=== PATIENT | male | born 1960 | race Caucasian/White ===

== ENCOUNTER 2022-07-31 10:19 | Inpatient (IN) ==
[2022-07-31 12:36] LABS: Hematocrit 39 % (42-52); Hemoglobin 13.8 g/dL (14.0-18.0); Mean Corpuscular HGB Conc 35 g/dL (31-36); Mean Corpuscular Hemoglobin 34 pg (27-31); Mean Corpuscular Volume 97 fL (80-94); Red Blood Count 4.09 10^6 /uL (4.18-5.48); Red Cell Distribution Width 15 % (10-15); White Blood Count 10.3 10^3/uL (3.5-10.8)
[2022-07-31 12:51] LABS: Urine Color Yellow
[2022-07-31 12:52] LABS: Urine Appearance Slightly Cloudy; Urine Glucose 3+ (>=1000 mg/dL) (Negative); Urine Ketones 1+ (15mg/dL) (Negative); Urine Nitrite Positive (Negative); Urine Protein Negative (Negative); Urine Specific Gravity 1.015 (1.005-1.030)
[2022-07-31 12:56] LABS: High Sens Troponin Baseline 11 pg/mL (<20)
[2022-07-31 12:58] LABS: ABS Basophils 0.1 10^3/ul (0-0.2); ABS Eosinophils 0.1 10^3/ul (0-0.6); ABS Lymphocytes 1.3 10^3/ul (1.0-4.8); ABS Monocytes 1.2 10^3/ul (0-0.8); ABS Neutrophils 7.6 10^3/ul (1.5-7.7); Lymphocyte % 12.2 %; Mean Platelet Volume 7.6 fL (7.4-10.4); Nucleated Red Blood Cells % 0.1; Platelet Count 68 10^3/uL (150-450)
[2022-07-31 13:04] LABS: Urine Bacteria Absent (Absent); Urine Red Blood Cell 2+(6-10/hpf) (Absent); Urine Squamous Epithelial Cell Present (Absent); Urine White Blood Cell 2+(11-20/hpf) (Absent)
[2022-07-31 13:08] LABS: Urine Benzodiazepine Screen None Detected (None Detect); Urine Cannabinoids Screen Presumptive Positive (None Detect); Urine Opiates Screen None Detected (None Detect)
[2022-07-31 13:27] LABS: ALT 23 U/L (7-52); AST 55 U/L (13-39); Acetaminophen < 15 mcg/mL; Albumin 2.4 g/dL (3.2-5.2); Albumin/Globulin Ratio 0.6 (1-3); Alcohol, S 48 mg/dL (<13); Alkaline Phosphatase 252 U/L (35-149); Anion Gap 7 mmol/L (2-11); Blood Urea Nitrogen 5 mg/dL (6-24); CO2 Carbon Dioxide 27 mmol/L (22-32); Calcium 8.6 mg/dL (8.6-10.3); Chloride 98 mmol/L (101-111); Globulin 3.9 g/dL (2-4); Glucose 223 mg/dL (70-100); Potassium 3.7 mmol/L (3.5-5.0); Salicylate < 2.50 mg/dL (<30); Sodium 132 mmol/L (135-145); Total Protein 6.3 g/dL (6.4-8.9); eGFR CKD-EPI 116.1 (>60)
[2022-07-31] MEDS ORDERED: Iodixanol (CONTRAST) 320 MG/ML 100 ML SDV IV ONE (13:54)
[2022-07-31 14:01] LABS: High Sensitivity Troponin 1 Hr 10 pg/mL (<20)
[2022-07-31 15:45] LABS: Indirect Bilirubin 5.4 mg/dL (0.3-1.0)
[2022-07-31] MEDS ORDERED: Thiamine 100 MG/ML 2 ml VIAL (200 mg) IM ONE (16:41)
[2022-07-31] MEDS ORDERED: HYDROmorphone 0.5 MG/0.5 ML SYRINGE IV ONE (16:47)
[2022-07-31 17:07] LABS: INR 1.63 (0.88-1.18)
[2022-07-31] MEDS ORDERED: Dextrose 50% Syringe 50 ml 25 GM/50 ML SYRINGE IV PUSH PRN (17:07)
[2022-07-31 17:08] LABS: Protime (Maddrey) 17.8 seconds (9.5-12.8)
[2022-07-31 17:37] LABS: Magnesium 1.7 mg/dL (1.9-2.7)
[2022-07-31] MEDS ORDERED: Magnesium Sulf 4 GM/100 ML IV 4,000 MG/100 ML BAG IVPB ONE (17:54)
[2022-07-31] MEDS: Lactulose 30 ml UDC PO SCH ×2 (18:25→23:13)
[2022-07-31] MEDS: Multivitamins/Minerals TAB PO SCH (18:25)
[2022-07-31] MEDS: cefTRIAXone 1 gm/50 mL D5W 1 GM/50 ML BAG IV SCH (20:26)
[2022-07-31] MEDS: Enoxaparin 40 MG/0.4 ML SYR SUBCUT SCH (20:29)
[2022-07-31] MEDS: KCL 10 MEQ/50 ML IVPREMIX 10 MEQ/50 ML BAG IV SCH (23:33)
[2022-08-01] MEDS: KCL 10 MEQ/50 ML IVPREMIX 10 MEQ/50 ML BAG IV SCH ×2 (00:53→03:45)
[2022-08-01 07:29] LABS: ABS Eosinophils 0.1 10^3/ul (0-0.6); ABS Lymphocytes 1.3 10^3/ul (1.0-4.8); ABS Neutrophils 5.6 10^3/ul (1.5-7.7); Eosinophil % 1.4 %; Hematocrit 40 % (42-52); Hemoglobin 14.1 g/dL (14.0-18.0); Lymphocyte % 16.3 %; Mean Corpuscular HGB Conc 36 g/dL (31-36); Mean Corpuscular Hemoglobin 35 pg (27-31); Mean Corpuscular Volume 99 fL (80-94); Mean Platelet Volume 7.7 fL (7.4-10.4); Nucleated Red Blood Cells % 0.3; Platelet Count 61 10^3/uL (150-450); Red Blood Count 4.03 10^6 /uL (4.18-5.48); Red Cell Distribution Width 16 % (10-15); White Blood Count 8.1 10^3/uL (3.5-10.8)
[2022-08-01 07:33] LABS: Albumin 2.3 g/dL (3.2-5.2); Albumin/Globulin Ratio 0.7 (1-3); Calcium 8.3 mg/dL (8.6-10.3); Globulin 3.4 g/dL (2-4); Potassium 3.7 mmol/L (3.5-5.0); Total Protein 5.7 g/dL (6.4-8.9); eGFR CKD-EPI 117.5 (>60)
[2022-08-01 07:46] LABS: Magnesium 2.1 mg/dL (1.9-2.7); Total Bilirubin 15.1 mg/dL (0.2-1.0)
[2022-08-01 07:53] LABS: Ferritin 316.8 ng/mL (24-336)
[2022-08-01] MEDS: Multivitamins/Minerals TAB PO SCH (08:12)
[2022-08-01] MEDS: Lactulose 30 ml UDC PO SCH ×3 (08:13→21:39)
[2022-08-01 11:11] LABS: Hepatitis A Ab IgM Negative (Negative)
[2022-08-01 11:12] LABS: Hepatitis B Core IgM Nonreactive (Nonreactive)
[2022-08-01 11:24] LABS: Hepatitis C Antibody Negative (Negative)
[2022-08-01 11:26] LABS: Hepatitis B Surface Ab Not Immune (Immune)
[2022-08-01] MEDS: Enoxaparin 40 MG/0.4 ML SYR SUBCUT SCH (17:44)
[2022-08-01] MEDS: cefTRIAXone 1 gm/50 mL D5W 1 GM/50 ML BAG IV SCH (17:44)
[2022-08-01] MEDS ORDERED: HYDROmorphone 0.5 MG/0.5 ML SYRINGE IV SLOW PU ONE (22:58)
[2022-08-02 07:33] LABS: INR 1.94 (0.88-1.18)
[2022-08-02 07:33] LABS: ABS Eosinophils 0.1 10^3/ul (0-0.6); ABS Lymphocytes 1.1 10^3/ul (1.0-4.8); ABS Monocytes 0.6 10^3/ul (0-0.8); ABS Neutrophils 3.7 10^3/ul (1.5-7.7); Eosinophil % 1.8 %; Hematocrit 39 % (42-52); Hemoglobin 13.8 g/dL (14.0-18.0); Lymphocyte % 19.1 %; Mean Corpuscular HGB Conc 35 g/dL (31-36); Mean Corpuscular Hemoglobin 35 pg (27-31); Mean Corpuscular Volume 100 fL (80-94); Mean Platelet Volume 7.8 fL (7.4-10.4); Nucleated Red Blood Cells % 0.1; Platelet Count 65 10^3/uL (150-450); Red Blood Count 3.95 10^6 /uL (4.18-5.48); Red Cell Distribution Width 16 % (10-15); White Blood Count 5.5 10^3/uL (3.5-10.8)
[2022-08-02 07:45] LABS: ALT 24 U/L (7-52); Albumin 2.4 g/dL (3.2-5.2); Albumin/Globulin Ratio 0.7 (1-3); Alkaline Phosphatase 236 U/L (35-149); Blood Urea Nitrogen 9 mg/dL (6-24); CO2 Carbon Dioxide 27 mmol/L (22-32); Calcium 8.3 mg/dL (8.6-10.3); Chloride 99 mmol/L (101-111); Globulin 3.4 g/dL (2-4); Glucose 219 mg/dL (70-100); Sodium 134 mmol/L (135-145); Total Protein 5.8 g/dL (6.4-8.9); eGFR CKD-EPI 109.4 (>60)
[2022-08-02] MEDS: Lactulose 30 ml UDC PO SCH ×3 (07:45→19:49)
[2022-08-02] MEDS: Multivitamins/Minerals TAB PO SCH (07:47)
[2022-08-02 08:05] LABS: Anion Gap 8 mmol/L (2-11)
[2022-08-02 08:07] LABS: Protime (Maddrey) 21.2 seconds (9.5-12.8)
[2022-08-02 08:08] LABS: Total Bilirubin 15.2 mg/dL (0.2-1.0)
[2022-08-02 09:14] LABS: Folate 10.08 ng/mL (5.90-24.80)
[2022-08-02 09:15] LABS: Vitamin B12 > 1450 pg/mL (180-914)
[2022-08-02 09:49] LABS: Potassium 3.7 mmol/L (3.5-5.0)
[2022-08-02] MEDS ORDERED: Senna TAB 8.6 mg TAB PO PRN (10:32)
[2022-08-02 12:37] LABS: Glucose Confirmatory 439 mg/dL (70-100)
[2022-08-02] MEDS ORDERED: Dextrose 50% Syringe 50 ml 25 GM/50 ML SYRINGE IV PUSH PRN (13:01)
[2022-08-02] MEDS: cefTRIAXone 1 gm/50 mL D5W 1 GM/50 ML BAG IV SCH (17:48)
[2022-08-02] MEDS: Enoxaparin 40 MG/0.4 ML SYR SUBCUT SCH (17:49)
[2022-08-03] MEDS: Lactulose 30 ml UDC PO SCH ×2 (08:55→13:04)
[2022-08-03] MEDS ORDERED: Influenza vaccine *QUAD* *2022-23* 0.5 ML SYRINGE IM ONE (09:00)
[2022-08-03 09:18] LABS: ABS Eosinophils 0.2 10^3/ul (0-0.6); ABS Lymphocytes 1.7 10^3/ul (1.0-4.8); ABS Monocytes 0.9 10^3/ul (0-0.8); ABS Neutrophils 4.3 10^3/ul (1.5-7.7); Eosinophil % 2.4 %; Hematocrit 41 % (42-52); Hemoglobin 14.6 g/dL (14.0-18.0); Lymphocyte % 23.7 %; Mean Corpuscular HGB Conc 36 g/dL (31-36); Mean Corpuscular Hemoglobin 35 pg (27-31); Mean Corpuscular Volume 98 fL (80-94); Mean Platelet Volume 7.2 fL (7.4-10.4); Nucleated Red Blood Cells % 0.2; Platelet Count 90 10^3/uL (150-450); Red Blood Count 4.21 10^6 /uL (4.18-5.48); Red Cell Distribution Width 16 % (10-15)
[2022-08-03 09:49] LABS: Albumin 2.6 g/dL (3.2-5.2); Albumin/Globulin Ratio 0.7 (1-3); Calcium 8.7 mg/dL (8.6-10.3); Globulin 3.6 g/dL (2-4); Potassium 3.4 mmol/L (3.5-5.0); Total Protein 6.2 g/dL (6.4-8.9); eGFR CKD-EPI 114.1 (>60)
[2022-08-03 09:54] LABS: Total Bilirubin 14.4 mg/dL (0.2-1.0)
[2022-08-03] MEDS ORDERED: Potassium Chlor 20 meq TAB.ER PO ONE (10:04)
[2022-08-03 10:24] LABS: Magnesium 1.5 mg/dL (1.9-2.7)
[2022-08-03 11:26] VITALS: BP 138/78
[2022-08-03] MEDS ORDERED: Multivitamins/Minerals TAB PO SCH (11:30)
[2022-08-06 16:50] LABS: Hepatitis B DNA Quantitative Undetected IU/mL (Undetected)
== END 2022-08-03 13:25 | disposition home or self-care (01) | DRG 280 ==
LOC: EDHOLD 10:19 → ED 10:19 → SUATTDRO 15:58 → MED 21:21
PROVIDERS: ADMIT Internal Medicine; ATTEND Internal Medicine

== ENCOUNTER 2023-02-22 07:18 | Inpatient (IN) ==
[2023-02-22] MEDS ORDERED: Lactated Ringers 1000 ml BAG 1,000 ML IV ONE ×3 (07:27→14:37)
[2023-02-22 07:48] LABS: Venous Bicarbonate HCO3 26.9 mmol/L (24-28)
[2023-02-22 08:03] LABS: INR 1.52 (0.88-1.18)
[2023-02-22 08:04] LABS: ALT 45 U/L (7-52); Albumin 2.9 g/dL (3.2-5.2); Albumin/Globulin Ratio 0.9 (1-3); Alkaline Phosphatase 132 U/L (35-149); Blood Urea Nitrogen 9 mg/dL (6-24); C Reactive Protein 4.88 mg/L (<8.01); CO2 Carbon Dioxide 27 mmol/L (22-32); Calcium 9.6 mg/dL (8.6-10.3); Chloride 97 mmol/L (101-111); Creatinine, Serum 1.01 mg/dL (0.67-1.17); Globulin 3.4 g/dL (2-4); Glucose 487 mg/dL (70-100); Sodium 134 mmol/L (135-145); Total Protein 6.3 g/dL (6.4-8.9); eGFR CKD-EPI 84.6 (>60)
[2023-02-22 08:10] LABS: Anion Gap 10 mmol/L (2-16); High Sens Troponin Baseline 9 pg/mL (<20)
[2023-02-22 08:33] LABS: ABS Eosinophils 0.1 10^3/uL (0.0-0.5); ABS Lymphocytes 0.7 10^3/uL (1.0-4.8); ABS Monocytes 0.5 10^3/uL (0.0-1.1); ABS Neutrophils 5.7 10^3/uL (1.5-7.6); ABS Nucleated RBC 0.01 10^3/ul; Eosinophil % 0.9 %; Hematocrit 40.4 % (38-53); Hemoglobin 14.5 g/dL (13.2-16.3); Lymphocyte % 9.5 %; Mean Corpuscular Hemoglobin 33.1 pg (27-33); Mean Corpuscular Volume 92.1 fL (80-97); Mean Platelet Volume 8.4 fL (7.5-11.2); Nucleated Red Blood Cells % 0.1 /100 WBC (0.0-0.4); Platelet Count 65 10^3/uL (150-450); Red Blood Count 4.39 10^6/uL (4.06-5.63); Red Cell Distribution Width 15.7 % (12-17); White Blood Count 6.9 10^3/uL (3.6-10.2)
[2023-02-22] MEDS ORDERED: Iodixanol (CONTRAST) 320 MG/ML 100 ML SDV IV ONE (09:10)
[2023-02-22 09:19] LABS: High Sensitivity Troponin 1 Hr 9 pg/mL (<20)
[2023-02-22] MEDS ORDERED: Pantoprazole 80 mg in NS BAG 80 MG/250 ML BAG IV ONE (10:08)
[2023-02-22 10:10] LABS: Potassium, Whole Blood 4.5 mmol/L (3.4-4.5)
[2023-02-22] MEDS ORDERED: Cefepime 2 GM in Dextrose 2 GM/50 ML BAG IV ONE (11:07)
[2023-02-22] MEDS ORDERED: Zosyn per Pharmacy NOTE FOLLOW UP SCH (16:00)
[2023-02-22] MEDS ORDERED: Piperacillin/Tazobac ADVAN 3.375 GM in NS 0.9% 100 ml BAG 100 ML IV ONE (16:00)
[2023-02-22] MEDS ORDERED: Dextrose 50% Syringe 50 ml 25 GM/50 ML SYRINGE IV PUSH PRN (16:21)
[2023-02-22] MEDS ORDERED: Lactated Ringers 1000 ml BAG 1,000 ML IV SCH (19:00)
[2023-02-22] MEDS: Lactulose 30 ml UDC PO SCH ×2 (20:29→20:31)
[2023-02-22] MEDS: ZOSYN 3.375 GM Q8H per EXTENDED INFUSION IV SCH (22:09)
[2023-02-23 05:45] LABS: Albumin 2.1 g/dL (3.2-5.2); Albumin/Globulin Ratio 0.8 (1-3); Calcium 8.8 mg/dL (8.6-10.3); Creatinine, Serum 0.68 mg/dL (0.67-1.17); Globulin 2.6 g/dL (2-4); Magnesium 1.4 mg/dL (1.9-2.7); Potassium 3.4 mmol/L (3.5-5.0); Total Bilirubin 4.2 mg/dL (0.2-1.0); Total Protein 4.7 g/dL (6.4-8.9); eGFR CKD-EPI 105.8 (>60)
[2023-02-23 06:07] LABS: ABS Eosinophils 0.1 10^3/uL (0.0-0.5); ABS Lymphocytes 1.3 10^3/uL (1.0-4.8); ABS Monocytes 0.6 10^3/uL (0.0-1.1); ABS Neutrophils 5.6 10^3/uL (1.5-7.6); ABS Nucleated RBC 0.01 10^3/ul; Eosinophil % 1.5 %; Hematocrit 33.6 % (38-53); Hemoglobin 11.9 g/dL (13.2-16.3); Lymphocyte % 16.7 %; Mean Corpuscular Hemoglobin 32.9 pg (27-33); Mean Corpuscular Hgb Conc 35.5 g/dL (31-36); Mean Corpuscular Volume 92.8 fL (80-97); Mean Platelet Volume 8.3 fL (7.5-11.2); Nucleated Red Blood Cells % 0.1 /100 WBC (0.0-0.4); Platelet Count 57 10^3/uL (150-450); Red Blood Count 3.62 10^6/uL (4.06-5.63); Red Cell Distribution Width 15.7 % (12-17); White Blood Count 7.7 10^3/uL (3.6-10.2)
[2023-02-23] MEDS: ZOSYN 3.375 GM Q8H per EXTENDED INFUSION IV SCH ×3 (06:08→21:07)
[2023-02-23] MEDS ORDERED: Potassium EFFERVES 25 meq TAB PO ONE (08:21)
[2023-02-23] MEDS ORDERED: Magnesium Sulfate IV 3 GM in NS 0.9% 100 ml BAG 100 ML IVPB ONE (08:21)
[2023-02-23] MEDS: Lactulose 30 ml UDC PO SCH ×2 (09:20→21:22)
[2023-02-23] MEDS: Enoxaparin 40 MG/0.4 ML SYR SUBCUT SCH (12:03)
[2023-02-24] MEDS: ZOSYN 3.375 GM Q8H per EXTENDED INFUSION IV SCH (05:47)
[2023-02-24 07:40] LABS: ABS Eosinophils 0.3 10^3/uL (0.0-0.5); ABS Lymphocytes 2.6 10^3/uL (1.0-4.8); ABS Neutrophils 5.4 10^3/uL (1.5-7.6); ABS Nucleated RBC 0.02 10^3/ul; Eosinophil % 2.9 %; Hematocrit 40.4 % (38-53); Hemoglobin 14.4 g/dL (13.2-16.3); Lymphocyte % 28.4 %; Mean Corpuscular Hemoglobin 33.2 pg (27-33); Mean Corpuscular Hgb Conc 35.6 g/dL (31-36); Mean Corpuscular Volume 93.1 fL (80-97); Nucleated Red Blood Cells % 0.2 /100 WBC (0.0-0.4); Platelet Count 67 10^3/uL (150-450); Red Blood Count 4.34 10^6/uL (4.06-5.63); White Blood Count 9.3 10^3/uL (3.6-10.2)
[2023-02-24 07:53] LABS: Albumin 2.6 g/dL (3.2-5.2); Albumin/Globulin Ratio 0.8 (1-3); Calcium 9.2 mg/dL (8.6-10.3); Creatinine, Serum 0.69 mg/dL (0.67-1.17); Globulin 3.3 g/dL (2-4); Magnesium 1.5 mg/dL (1.9-2.7); Potassium 3.8 mmol/L (3.5-5.0); Total Bilirubin 3.8 mg/dL (0.2-1.0); Total Protein 5.9 g/dL (6.4-8.9); eGFR CKD-EPI 105.3 (>60)
[2023-02-24] MEDS: Lactulose 30 ml UDC PO SCH ×2 (08:35→20:58)
[2023-02-24] MEDS ORDERED: Magnesium Sulf 4 GM/100 ML IV 4,000 MG/100 ML BAG IVPB ONE (08:47)
[2023-02-24] MEDS ORDERED: NF: Dulaglutide (NF) 0.75 MG/0.5 ML SYRINGE SUBCUT SCH (09:00)
[2023-02-24] MEDS ORDERED: Insulin GLARGINE 100 un/ml 10 ml VIAL SUBCUT SCH (09:00)
[2023-02-24] MEDS: Enoxaparin 40 MG/0.4 ML SYR SUBCUT SCH (12:26)
[2023-02-25 06:01] LABS: ABS Eosinophils 0.2 10^3/uL (0.0-0.5); ABS Lymphocytes 2.1 10^3/uL (1.0-4.8); ABS Monocytes 0.6 10^3/uL (0.0-1.1); ABS Neutrophils 2.7 10^3/uL (1.5-7.6); ABS Nucleated RBC 0.01 10^3/ul; Eosinophil % 4.1 %; Hematocrit 34.4 % (38-53); Hemoglobin 12.3 g/dL (13.2-16.3); Lymphocyte % 36.7 %; Mean Corpuscular Hemoglobin 33.3 pg (27-33); Mean Corpuscular Hgb Conc 35.8 g/dL (31-36); Mean Corpuscular Volume 92.9 fL (80-97); Mean Platelet Volume 7.6 fL (7.5-11.2); Nucleated Red Blood Cells % 0.2 /100 WBC (0.0-0.4); Platelet Count 59 10^3/uL (150-450); Red Cell Distribution Width 15.8 % (12-17); White Blood Count 5.6 10^3/uL (3.6-10.2)
[2023-02-25 06:15] LABS: C Reactive Protein 59.99 mg/L (<8.01); Calcium 8.6 mg/dL (8.6-10.3); Creatinine, Serum 0.82 mg/dL (0.67-1.17); Potassium 3.4 mmol/L (3.5-5.0); eGFR CKD-EPI 99.9 (>60)
[2023-02-25] MEDS ORDERED: Potassium Chloride LIQUID 20 MEQ/15 ML LIQUID PO ONE (08:11)
[2023-02-25] MEDS: Lactulose 30 ml UDC PO SCH ×2 (08:31→20:37)
[2023-02-25] MEDS: Insulin GLARGINE 100 un/ml 10 ml VIAL SUBCUT SCH (08:33)
[2023-02-25 08:42] LABS: ABS Eosinophils 0.2 10^3/uL (0.0-0.5); ABS Lymphocytes 2.4 10^3/uL (1.0-4.8); ABS Monocytes 0.5 10^3/uL (0.0-1.1); ABS Neutrophils 2.9 10^3/uL (1.5-7.6); ABS Nucleated RBC 0.01 10^3/ul; Eosinophil % 3.7 %; Hematocrit 39.3 % (38-53); Hemoglobin 13.9 g/dL (13.2-16.3); Lymphocyte % 40.1 %; Mean Corpuscular Hgb Conc 35.4 g/dL (31-36); Mean Corpuscular Volume 93.3 fL (80-97); Mean Platelet Volume 7.6 fL (7.5-11.2); Nucleated Red Blood Cells % 0.2 /100 WBC (0.0-0.4); Platelet Count 67 10^3/uL (150-450); Red Blood Count 4.21 10^6/uL (4.06-5.63); Red Cell Distribution Width 15.7 % (12-17)
[2023-02-25 08:45] LABS: Magnesium 1.6 mg/dL (1.9-2.7)
[2023-02-25] MEDS ORDERED: Magnesium Sulf 4 GM/100 ML IV 4,000 MG/100 ML BAG IVPB ONE (08:49)
[2023-02-25] MEDS: Enoxaparin 40 MG/0.4 ML SYR SUBCUT SCH (12:11)
[2023-02-25 16:21] LABS: Vitamin D Total 25(OH) 22.6 ng/mL (20-50)
[2023-02-25 16:32] LABS: TSH Ultra Thyroid Stim Horm 2.7 mcIU/mL (0.34-5.60)
[2023-02-26 05:54] LABS: ABS Eosinophils 0.3 10^3/uL (0.0-0.5); ABS Lymphocytes 2.6 10^3/uL (1.0-4.8); ABS Monocytes 0.6 10^3/uL (0.0-1.1); ABS Neutrophils 2.3 10^3/uL (1.5-7.6); ABS Nucleated RBC 0.01 10^3/ul; Eosinophil % 4.4 %; Hematocrit 36.9 % (38-53); Hemoglobin 13.3 g/dL (13.2-16.3); Lymphocyte % 45.2 %; Mean Corpuscular Hemoglobin 32.9 pg (27-33); Mean Corpuscular Volume 91.5 fL (80-97); Mean Platelet Volume 7.5 fL (7.5-11.2); Nucleated Red Blood Cells % 0.1 /100 WBC (0.0-0.4); Platelet Count 70 10^3/uL (150-450); Red Blood Count 4.03 10^6/uL (4.06-5.63); Red Cell Distribution Width 15.8 % (12-17); White Blood Count 5.7 10^3/uL (3.6-10.2)
[2023-02-26 06:11] LABS: Albumin 2.5 g/dL (3.2-5.2); Albumin/Globulin Ratio 0.9 (1-3); C Reactive Protein 39.23 mg/L (<8.01); Calcium 8.9 mg/dL (8.6-10.3); Creatinine, Serum 0.63 mg/dL (0.67-1.17); Globulin 2.9 g/dL (2-4); Magnesium 1.7 mg/dL (1.9-2.7); Potassium 3.7 mmol/L (3.5-5.0); Total Bilirubin 3.3 mg/dL (0.2-1.0); Total Protein 5.4 g/dL (6.4-8.9); eGFR CKD-EPI 108.2 (>60)
[2023-02-26] MEDS ORDERED: Magnesium Sulfate 2 gm BAG 2 GM/50 ML BAG IVPB ONE (06:54)
[2023-02-26] MEDS: Cholecalciferol (VIT D3) 1,000 unit TAB PO SCH (08:13)
[2023-02-26] MEDS: Insulin GLARGINE 100 un/ml 10 ml VIAL SUBCUT SCH (08:14)
[2023-02-26] MEDS: Lactulose 30 ml UDC PO SCH ×3 (08:14→20:43)
[2023-02-26] MEDS: Enoxaparin 40 MG/0.4 ML SYR SUBCUT SCH (12:03)
[2023-02-27 06:33] LABS: ABS Eosinophils 0.2 10^3/uL (0.0-0.5); ABS Lymphocytes 2.5 10^3/uL (1.0-4.8); ABS Monocytes 0.6 10^3/uL (0.0-1.1); ABS Neutrophils 2.4 10^3/uL (1.5-7.6); Eosinophil % 3.1 %; Hematocrit 34.8 % (38-53); Hemoglobin 12.5 g/dL (13.2-16.3); Lymphocyte % 43.3 %; Mean Corpuscular Hgb Conc 35.8 g/dL (31-36); Mean Corpuscular Volume 92.2 fL (80-97); Mean Platelet Volume 7.7 fL (7.5-11.2); Platelet Count 72 10^3/uL (150-450); Red Blood Count 3.78 10^6/uL (4.06-5.63); Red Cell Distribution Width 15.6 % (12-17); White Blood Count 5.8 10^3/uL (3.6-10.2)
[2023-02-27 06:55] LABS: Albumin 2.5 g/dL (3.2-5.2); Albumin/Globulin Ratio 0.9 (1-3); C Reactive Protein 24.1 mg/L (<8.01); Calcium 8.7 mg/dL (8.6-10.3); Creatinine, Serum 0.59 mg/dL (0.67-1.17); Globulin 2.9 g/dL (2-4); Magnesium 1.6 mg/dL (1.9-2.7); Potassium 3.4 mmol/L (3.5-5.0); Total Bilirubin 3.4 mg/dL (0.2-1.0); Total Protein 5.4 g/dL (6.4-8.9); eGFR CKD-EPI 110.4 (>60)
[2023-02-27] MEDS: Cholecalciferol (VIT D3) 1,000 unit TAB PO SCH (08:54)
[2023-02-27] MEDS: Insulin GLARGINE 100 un/ml 10 ml VIAL SUBCUT SCH (08:54)
[2023-02-27] MEDS: Lactulose 30 ml UDC PO SCH ×3 (08:55→21:08)
[2023-02-27] MEDS ORDERED: Potassium Chlor 20 meq TAB.ER PO ONE (10:00)
[2023-02-27] MEDS: DULoxetine DR 30 mg CAP PO SCH (11:55)
[2023-02-27] MEDS: Enoxaparin 40 MG/0.4 ML SYR SUBCUT SCH (11:56)
[2023-02-28 06:54] LABS: ABS Eosinophils 0.2 10^3/uL (0.0-0.5); ABS Lymphocytes 2.2 10^3/uL (1.0-4.8); ABS Monocytes 0.6 10^3/uL (0.0-1.1); ABS Neutrophils 2.1 10^3/uL (1.5-7.6); ABS Nucleated RBC 0.01 10^3/ul; Eosinophil % 3.6 %; Hematocrit 32.8 % (38-53); Hemoglobin 11.9 g/dL (13.2-16.3); Lymphocyte % 42.9 %; Mean Corpuscular Hemoglobin 33.3 pg (27-33); Mean Corpuscular Hgb Conc 36.3 g/dL (31-36); Mean Corpuscular Volume 91.8 fL (80-97); Mean Platelet Volume 7.8 fL (7.5-11.2); Nucleated Red Blood Cells % 0.3 /100 WBC (0.0-0.4); Platelet Count 72 10^3/uL (150-450); Red Blood Count 3.58 10^6/uL (4.06-5.63); Red Cell Distribution Width 15.4 % (12-17); White Blood Count 5.1 10^3/uL (3.6-10.2)
[2023-02-28 07:06] LABS: Albumin 2.4 g/dL (3.2-5.2); Albumin/Globulin Ratio 0.8 (1-3); Calcium 8.8 mg/dL (8.6-10.3); Creatinine, Serum 0.59 mg/dL (0.67-1.17); Globulin 2.9 g/dL (2-4); Magnesium 1.6 mg/dL (1.9-2.7); Potassium 3.8 mmol/L (3.5-5.0); Total Bilirubin 3.4 mg/dL (0.2-1.0); Total Protein 5.3 g/dL (6.4-8.9); eGFR CKD-EPI 110.4 (>60)
[2023-02-28] MEDS ORDERED: Magnesium Sulf 4 GM/100 ML IV 4,000 MG/100 ML BAG IVPB ONE (07:11)
[2023-02-28] MEDS: Cholecalciferol (VIT D3) 1,000 unit TAB PO SCH (08:00)
[2023-02-28] MEDS: DULoxetine DR 30 mg CAP PO SCH (08:00)
[2023-02-28] MEDS: Lactulose 30 ml UDC PO SCH ×2 (08:00→13:43)
[2023-02-28] MEDS: Insulin GLARGINE 100 un/ml 10 ml VIAL SUBCUT SCH (08:02)
[2023-02-28] MEDS: Enoxaparin 40 MG/0.4 ML SYR SUBCUT SCH ×2 (12:00→12:02)
[2023-02-28 13:24] VITALS: BP 131/55
== END 2023-02-28 16:00 | disposition home or self-care (01) | DRG 249 ==
LOC: ED 07:18 → SUATTDRO 13:03 → EDHOLD 13:03 → ICU 16:27 → MED 02-23 14:17
PROVIDERS: ADMIT Student in an Organized Health Care Education/Training Program; ATTEND Internal Medicine